=== PATIENT | female | born 1990 | race Caucasian/White ===

== ENCOUNTER 2021-01-30 05:35 | Inpatient (IN) ==
[2021-01-30] MEDS ORDERED: ALBUTEROL HFA 8 GM INHALER INH PRN (06:42)
--- NOTE | 2021-01-30 06:49 | History & Physical Report ---
Date of Service January 30, 2021 Assessment & Plan (1) SPROM (prolonged spontaneous rupture of membranes): Admission and Anticipated Discharge Date Admission Date: IUP at 37 weeks with SPROM and early labor check BSG now epidural when requested may need pitocin augmentation of labor anticipate vaginal . History of Present Illness Primary Care Provider: Charlotte Mario PA-C Patient is a 30 yo white female EDC 02/17/21 who presents at 37 weeks with SPROM at 0415. She has had mild contractions since then. complicated by GDM that was diet controlled. Last ac was 69%tile. GBS -negative. Blood type- A positive Allergies Allergy/AdvReac Type Severity Reaction Status Date / Time No Known Allergies Allergy Verified 01/26/21 14:34 Home Medications Medication Instructions Recorded Confirmed Type albuterol 90 mcg/actuation aerosol mcg INHALATION 07/02/20 01/26/21 History inhaler budesonide-formoterol HFA 160 2 puff INHALATION BID 07/02/20 01/26/21 History mcg-4.5 mcg/actuation aerosol inhaler cetirizine 10 mg tablet 10 mg PO DAILY 07/02/20 01/26/21 History montelukast 10 mg tablet 10 mg PO DAILY 07/02/20 01/26/21 History fluticasone propionate 50 1 spray INTRANASAL DAILY 07/10/20 01/26/21 History mcg/actuation nasal spray,suspension prenat.vits,terra,[id number] PO 08/07/20 01/26/21 History acetone (urine) test #50 ea 12/18/20 01/26/21 Rx blood sugar diagnostic #150 ea 12/18/20 01/26/21 Rx blood-glucose meter #1 ea 12/18/20 01/26/21 Rx lancets 33 gauge #150 ea 12/18/20 01/26/21 Rx Patient History Medical History Asthma Family History Father Diabetes Social History Smoking Status: Never smoker Hx Alcohol Use: No Hx Substance Use: No Preferred Language: Portuguese Saddle Cutter Required: No Beliefs That Will Affect Care: None marital status: marital status details: Quoc (31) [phone] Current Living Situation: Spouse Current Living Situation Comment: lives with spouse, 2 dogs. current occupational status: employed current occupation: salad counter attendant Feels Safe at Home: Yes Safety Concerns: Feels Safe At This Time Review of Systems All systems reviewed & are unremarkable except as noted in HPI & below Physical Exam Constitutional: WD/WN, vitals as above Respiratory: normal respiratory effort, lungs clear to auscultation Cardiovascular: RRR, no murmur, no edema Gastrointestinal (Abdomen): normal bowel sounds, soft, nontender, no hepatosplenomegaly Psychiatric: A+Ox3, euthymic affect Genitourinary: OB Exam Abdomen: + vertex and + estimated weight (6-7 pounds) Manual OB Exam: + cervical dilation 3 cm, + cervical effacement 70%, + station -1 and + amniotic fluid (pink tinged- grossly ruptured) clear OB Exam Monitor Tracing: + external FHT monitor used, + external uterine monitor used, + category I and + normal FHT variability Results & Data ([facility]) Vital Signs (Past 12 Hours) Vital Signs Temp Pulse Resp BP 01/30/21 06:06 97.7 F 83 16 129/85 Code Status & VTE Plan VTE Prophylaxis Plan VTE Prophylaxis will be ordered: No Coding Level of Care Code None Diagnoses SPROM (prolonged spontaneous rupture of membranes) O42.90
[2021-01-30 07:01] LABS: Hematocrit (blood only) 38.4 % (37-47); Hemoglobin 13.2 g/dL (12.0-16.0); Mean Corpuscular Hemoglobin 29.8 pg (25-34); Mean Corpuscular Hgb Conc 34.4 g/dL (32-36); Mean Corpuscular Volume 86.7 fL (80-100); Mean Platelet Volume 10.1 fL (7.4-10.4); Platelet Count 233 K/uL (130-400); RDW Coefficient of Variation 12.9 % (11.5-14.5); RDW Standard Deviation 41.1 fL (36.4-46.3); Red Blood Count 4.43 M/uL (4.2-5.4); White Blood Count 12.75 K/uL (4.8-10.8)
[2021-01-30] MEDS ORDERED: FLUTICASONE/VILANTEROL 100/25MCG 14 PUFFS/INHALER INH SCH (09:00)
[2021-01-30] MEDS ORDERED: FLUTICASONE PROPIONATE NA SPR 16 GM BTL SCH (09:00)
[2021-01-30] MEDS ORDERED: MONTELUKAST SODIUM 10 MG TABLET PO SCH (09:00)
[2021-01-30] MEDS ORDERED: SODIUM CHLORIDE 0.9% INJ 10 ML VIAL ONE (09:39)
[2021-01-30] MEDS ORDERED: ePHEDrine sulfate 50 MG/ML AMP ONE (09:39)
[2021-01-30] MEDS ORDERED: BUPIVACAINE 0.25% 30 ML VIAL ONE (09:39)
[2021-01-30] MEDS ORDERED: fentaNYL citrate 100 MCG/2 ML VIAL ONE (09:40)
[2021-01-30] MEDS ORDERED: fentaNYL 2MCG/ML ROPIVACAINE 1.25MG/ML 100 ML BAG EPI ONE (09:41)
[2021-01-30] MEDS: LACTATED RINGER'S 1,000 ML IV PRN ×2 (09:44→10:16)
[2021-01-30] MEDS ORDERED: ePHEDrine sulfate 50 MG/ML AMP IV PRN (10:06)
[2021-01-30] MEDS ORDERED: NALOXONE HCL 0.4 MG/1 ML VIAL/CARP IV PRN (10:06)
[2021-01-30] MEDS ORDERED: NALOXONE HCL 1 MG in SODIUM CHLORIDE 0.9% 1000ML 1,000 ML IV PRN (10:06)
[2021-01-30] MEDS ORDERED: fentaNYL 2MCG/ML ROPIVACAINE 1.25MG/ML 100 ML BAG EPI PRN (10:06)
[2021-01-30] MEDS ORDERED: diphenhydrAMINE 50 MG/ML VIAL IV PRN (10:06)
--- NOTE | 2021-01-30 10:07 | Anesthesiology Consultation ---
Date of Service January 30, 2021 Assessment & Plan ASA ASA2 Proposed Anesthesia Anesthesia Type: Labor Epidural Risk / Benefits Reviewed With: PT / POA / Parent / Guardian, Accepts Plan and Informed Consent Obtained History Height/Weight Height: 5 ft 4 in Weight: 88.904 kg Allergies Allergy/AdvReac Type Severity Reaction Status Date / Time No Known Allergies Allergy Verified 01/26/21 14:34 Medications Home Medications Medication Instructions Recorded Confirmed Last Taken albuterol 90 mcg/actuation aerosol 90 mcg INHALATION PRN 07/02/20 01/26/21 Unknown inhaler budesonide-formoterol HFA 160 2 puff INHALATION BID 07/02/20 01/30/21 01/28/21 mcg-4.5 mcg/actuation aerosol inhaler cetirizine 10 mg tablet 10 mg PO DAILY 07/02/20 01/30/21 01/29/21 montelukast 10 mg tablet 10 mg PO DAILY 07/02/20 01/30/21 01/29/21 fluticasone propionate 50 1 spray INTRANASAL DAILY 07/10/20 01/30/21 01/29/21 mcg/actuation nasal spray,suspension prenat.vits,terra,[id number] 1 tab PO DAILY 08/07/20 01/30/21 01/29/21 acetone (urine) test #50 ea 12/18/20 01/26/21 Unknown blood sugar diagnostic #150 ea 12/18/20 01/26/21 Unknown blood-glucose meter #1 ea 12/18/20 01/26/21 Unknown lancets 33 gauge #150 ea 12/18/20 01/26/21 Unknown Active Medications Generic Name Dose Route Start Last Admin Trade Name Freq PRN Reason Stop Dose Admin Lactated Ringer's 1,000 mls @ 125 mls/hr 01/30/21 06:29 01/30/21 09:44 Lr IV 02/01/21 06:28 999 mls/hr .Q8H PRN Administration L&D Protocol Protocol Past Medical History Medical History Asthma Exercise / Class Metabolic Activity II 4-5 Yardwork/Stairs/Walk up hill Past Family History Family History Father Diabetes Past Anesthesia History No Hx of Anesthesia Complications and No Family Hx of Anesthesia Complications History of PONV No Hx of PONV and No Hx of Motion Sickness Social History Smoking Status: Never smoker Hx Alcohol Use: No Hx Substance Use: No Review of Systems denies fever/cough/ colds/ chest pain/ SOB/ VILMA denies VILMA Physical Exam Vital Signs Last Vital Signs Temp 36.5 C 01/30/21 06:06 Pulse 71 01/30/21 10:03 Resp 16 01/30/21 06:06 BP 131/87 01/30/21 07:11 Pulse Ox 97 01/30/21 10:03 ENMT Mouth: no TMJ abnormality and no dentition abnormality Thyromental Distance: > or= 3.5 Finger Breadths Mallampati Class: II Neck neck extension not limited Respiratory normal respiratory effort; no respiratory distress Auscultation: lungs clear to auscultation bilaterally Cardiovascular Rate/Rhythm: regular rate and regular rhythm Neurologic moves all extremities Psychiatric Orientation: alert and oriented x 3 Testing Laboratory Results 01/30/21 06:50 01/30/21 06:34 POC Glucose 83
--- NOTE | 2021-01-30 10:54 | Labor Progress Brief Note ---
Date of Service January 30, 2021 Subjective Comfortable with epidural. FHT with occ variable decelerations [place] Q 2 SVE 9/100/0 Anticipate . Assessment & Plan Admission and Anticipated Discharge Date Admission Date: January 30, 2021 Results & Data ([facility]) Vital Signs (Past 12 Hours) Vital Signs Temp Pulse Resp BP Pulse Ox 01/30/21 10:48 69 122/73 99 01/30/21 10:43 57 L 97 01/30/21 10:42 55 L 116/71 01/30/21 10:38 60 96 01/30/21 10:37 57 L 113/71 01/30/21 10:35 60 118/74 01/30/21 10:33 59 L 97 01/30/21 10:32 59 L 129/80 01/30/21 10:31 64 126/79 01/30/21 10:29 70 132/91 01/30/21 10:28 64 97 01/30/21 10:27 66 131/88 01/30/21 10:25 62 127/82 01/30/21 10:23 78 98 01/30/21 10:18 69 97 01/30/21 10:17 75 157/87 H 01/30/21 10:13 65 96 01/30/21 10:08 62 96 01/30/21 10:03 71 97 01/30/21 09:58 65 97 01/30/21 09:53 75 96 01/30/21 09:48 84 99 01/30/21 09:00 20 01/30/21 07:11 68 131/87 01/30/21 07:00 36.8 C 20 01/30/21 06:06 36.5 C 83 16 129/85 Coding Level of Care Code None
--- NOTE | 2021-01-30 12:47 | Labor Progress Brief Note ---
Date of Service January 30, 2021 Subjective Comfortable. FHT mod ferny, baseline 130s. Rare variable ctx. [place] Q 2 SVE complete/0 Anticipate . Not yet feeling urge to push. Assessment & Plan Admission and Anticipated Discharge Date Admission Date: January 30, 2021 Results & Data ([facility]) Vital Signs (Past 12 Hours) Vital Signs Temp Pulse Resp BP Pulse Ox 01/30/21 12:43 70 99 01/30/21 12:38 67 100 01/30/21 12:33 72 98 01/30/21 12:31 73 126/88 01/30/21 12:28 67 99 01/30/21 12:23 69 99 01/30/21 12:18 77 99 01/30/21 12:13 65 99 01/30/21 12:12 60 123/79 01/30/21 12:08 59 L 124/81 99 01/30/21 12:03 63 124/82 99 01/30/21 12:01 20 01/30/21 11:58 61 99 01/30/21 11:57 62 123/79 01/30/21 11:53 61 99 01/30/21 11:52 57 L 122/76 01/30/21 11:48 60 125/78 98 01/30/21 11:46 20 01/30/21 11:43 69 98 01/30/21 11:42 62 124/76 01/30/21 11:39 62 122/77 01/30/21 11:38 62 100 01/30/21 11:33 65 99 01/30/21 11:32 61 120/77 01/30/21 11:31 20 01/30/21 11:28 62 100 01/30/21 11:27 68 117/78 01/30/21 11:23 56 L 120/74 99 01/30/21 11:18 61 99 01/30/21 11:17 59 L 114/74 01/30/21 11:16 20 01/30/21 11:13 59 L 99 01/30/21 11:12 56 L 119/82 01/30/21 11:08 55 L 122/75 100 01/30/21 11:03 59 L 117/75 98 01/30/21 11:01 20 01/30/21 10:58 68 99 01/30/21 10:57 62 113/72 01/30/21 10:53 68 98 01/30/21 10:52 81 109/68 01/30/21 10:48 69 122/73 99 01/30/21 10:43 57 L 97 01/30/21 10:42 55 L 116/71 01/30/21 10:41 20 01/30/21 10:38 60 96 01/30/21 10:37 57 L 113/71 01/30/21 10:35 60 118/74 01/30/21 10:33 59 L 97 01/30/21 10:32 59 L 129/80 01/30/21 10:31 64 126/79 01/30/21 10:29 70 132/91 01/30/21 10:28 64 97 01/30/21 10:27 66 131/88 01/30/21 10:25 62 127/82 01/30/21 10:23 78 98 01/30/21 10:18 69 97 01/30/21 10:17 75 157/87 H 01/30/21 10:13 65 96 01/30/21 10:08 62 96 01/30/21 10:03 71 97 01/30/21 09:58 65 97 01/30/21 09:53 75 96 01/30/21 09:48 84 99 01/30/21 09:00 20 01/30/21 07:11 68 131/87 01/30/21 07:00 36.8 C 20 01/30/21 06:06 36.5 C 83 16 129/85 Coding Level of Care Code None
[2021-01-30] MEDS: OXYTOCIN 30 UNITS/500 ML BAG IV PRN ×2 (14:48→15:31)
--- NOTE | 2021-01-30 15:32 | Delivery Summary ---
Vaginal Delivery Summary Date of Service January 30, 2021 Vaginal Delivery Summary [facility] Vaginal Delivery Summary: Pre-delivery diagnoses: 30yo @ 37 3/7, spontaneous labor, asthma, GDMA1 Post-delivery diagnoses: same Procedure: spontaneous vaginal delivery, 2nd degree perineal laceration repair and periclitoral repair Surgeon: Linda Harris DO Complications: none Findings: Viable male . Apgars: 8/9 . Weight pending, please see nursery records Estimated blood loss: 300ml Description of delivery: The patient progressed to complete with epidural anesthesia. She then began to push. She spontaneously vaginally delivered a viable from the cephalic presentation. The head delivered in MARILYNN position. Nuchal cord x 1, too tight to reduce, delivered through. The anterior shoulder delivered, followed by the posterior shoulder, followed by the body. The baby was placed on mother's abdomen and a spontaneous cry was heard. Delayed cord clamping was employed, and the cord was doubly clamped and cut. Cord blood was obtained. The placenta was delivered spontaneously intact with a 3-vessel cord. The uterus and vagina were swept of clots and debris. IV pitocin was given. The uterus became firm. The cervix, vagina, and perineum were inspected and a 2nd degree perineal laceration and left periclitoral laceration was noted. These were repaired with 3-0 vicryl. Excellent hemostasis was observed. The mother and baby are recovering in stable and good condition in the room. Sponge, needle and instrument counts were correct x 2. Linda Harris DO [facility] Vaginal Delivery Charge Vaginal Delivery Codes: 85526 global code for the antepartum, delivery, and post- Delivery Type Details: [facility]
[2021-01-30] MEDS ORDERED: BENZOCAINE 20% AER SPR 82.5 GM CAN EXT PRN (16:26)
[2021-01-30] MEDS ORDERED: SUPERCREAM 0.870% 15 GM JAR EXT PRN (16:26)
[2021-01-30] MEDS ORDERED: OXYTOCIN 30 UNITS/500 ML BAG IV PRN (16:26)
[2021-01-30] MEDS ORDERED: ACETAMINOPHEN 325 MG TAB PO PRN (16:26)
[2021-01-30] MEDS ORDERED: HYDROCORTISONE ACETATE 25 MG SUPP PR PRN (16:26)
[2021-01-30] MEDS ORDERED: oxyCODONE/ACETAMINOPHEN 5mg/325mg TAB PO PRN (16:26)
[2021-01-30] MEDS ORDERED: DIPHTHERIA/TETANUS/PERTUSSIS 0.5 ML SYR/VIAL IM ONE (16:26)
[2021-01-30] MEDS ORDERED: bisacodyL 10 MG SUPP PR PRN (16:26)
[2021-01-30] MEDS ORDERED: Nursing to Pharmacy Communication SCH (16:45)
--- NOTE | 2021-01-30 19:06 | Anesthesia Procedure Note ---
Date of Service January 30, 2021 Anesthesia Post Epidural Note Vital Signs Vital Signs: Temp Pulse Resp BP Pulse Ox 36.0 C L 79 20 129/86 96 01/30/21 11:15 01/30/21 19:01 01/30/21 17:35 01/30/21 19:01 01/30/21 14:43 Notes Mental Status: alert / awake / arousable and participated in evaluation Patient Amnestic to Procedure: No Nausea / Vomiting: adequately controlled Pain: adequately controlled Airway Patency, RR, SpO2: stable & adequate BP & HR: stable & adequate Hydration State: stable & adequate Neuraxial Anesthesia: was administered and sensory block is resolving Anesthetic Complications: no major complications apparent and Pt Satisfied with anesthetic care Epidural: Removed without complications and With tip intact
[2021-01-30] MEDS: IBUPROFEN 600 MG TAB PO PRN (19:23)
[2021-01-30] MEDS: DOCUSATE SODIUM 100 MG CAP PO SCH (20:26)
[2021-01-30] MEDS: PRENATAL VITAMIN 1 TAB PO SCH (20:27)
[2021-01-30] MEDS: FLUTICASONE PROPIONATE NA SPR 16 GM BTL SCH (20:27)
[2021-01-30] MEDS: MONTELUKAST SODIUM 10 MG TABLET PO SCH (20:28)
[2021-01-30] MEDS: FLUTICASONE/VILANTEROL 100/25MCG 14 PUFFS/INHALER INH SCH (20:33)
[2021-01-30] MEDS: CETIRIZINE HCL 10 MG TABLET PO SCH (21:34)
[2021-01-31 06:49] LABS: Hematocrit (blood only) 35.4 % (37-47); Hemoglobin 12.1 g/dL (12.0-16.0)
[2021-01-31] MEDS: DOCUSATE SODIUM 100 MG CAP PO SCH ×2 (07:45→20:28)
[2021-01-31] MEDS ORDERED: PRENATAL VITAMIN 1 TAB PO SCH (08:00)
[2021-01-31] MEDS ORDERED: CETIRIZINE HCL 10 MG TABLET PO SCH (09:00)
[2021-01-31] MEDS ORDERED: NON-FORMULARY MEDICATION (Prenat.Vits,Cal,Min-Iron-Folic 1 TAB) PO SCH (09:00)
--- NOTE | 2021-01-31 09:17 | Obstetrical Progress Note ---
Date of Service January 31, 2021 Assessment & Plan (1) Supervision of normal intrauterine in primigravida: PPD#1 doing well. Anticipate DC home tomorrow. Subjective Ambulation: ambulating normally Voiding: no voiding problems Diet Tolerance:: regular diet Lochia:: Moderate Feeding Type:: breast feeding PPD#1 doing well. Review of Systems All systems reviewed & are unremarkable except as noted in HPI & below Physical Exam Constitutional WD/WN, vitals as above no acute distress Respiratory normal respiratory effort Cardiovascular Rate/Rhythm: regular rate and regular rhythm Gastrointestinal (Abdomen) Inspection/Auscultation: abdomen normal to inspection; abdomen not distended Percussion/Palpation: abdomen soft Genitourinary OB Exam Abdomen: + fundal height Fundus: + firm; not tender Results & Data ([facility]) Vital Signs (Past 12 Hours) Vital Signs Temp Pulse Resp BP Pulse Ox 01/31/21 07:35 36.7 C 75 18 127/85 98 01/31/21 07:32 36.6 C 73 20 120/82 01/31/21 05:26 36.8 C 72 16 124/80 01/30/21 23:05 36.5 C 60 16 129/82
[2021-01-31] MEDS: IBUPROFEN 600 MG TAB PO PRN (15:15)
[2021-01-31] MEDS ORDERED: bisacodyL 5 MG TABEC PO SCH (20:00)
[2021-01-31] MEDS: MONTELUKAST SODIUM 10 MG TABLET PO SCH (20:29)
[2021-01-31] MEDS: PRENATAL VITAMIN 1 TAB PO SCH (20:29)
[2021-01-31] MEDS: CETIRIZINE HCL 10 MG TABLET PO SCH (20:29)
[2021-01-31] MEDS: FLUTICASONE/VILANTEROL 100/25MCG 14 PUFFS/INHALER INH SCH (20:31)
[2021-01-31] MEDS: FLUTICASONE PROPIONATE NA SPR 16 GM BTL SCH (21:26)
--- NOTE | 2021-02-01 05:09 | Obstetrical Progress Note ---
Date of Service <Oc Sylvester MD - Last Filed: 02/01/21 06:29> February 01, 2021 Assessment & Plan <Oc Sylvester MD - Last Filed: 02/01/21 06:29> (1) SPROM (prolonged spontaneous rupture of membranes): Mena is a 30 y/o female whose was complicated by GDMA1 who is now PPD #2 following at 37-3 weeks. - Feels well today. Eating well, voiding well, ambulating well. - Pain well controlled with ibuprofen 600mg Q4H PRN. - Routine PPD care -- continue OOB, ambulation - Anticipate d/c today - After discharge will have [address] Harris Subjective <Oc Sylvester MD - Last Filed: 02/01/21 06:29> Mena is a 89 y/o female who is now PPD #2 following at 37-3 weeks. Reports feeling well overall this morning. Mild abdominal cramping & pain well managed on analgesics. Voiding without difficulty. Tolerating meals well and able to ambulate some. Some persistent lochia with some improvement this morning. Breast feeding fine -- no concerns about latching. Review of Systems Denies fever, chills, sweats Denies shortness of breath, difficulty breathing, chest pain, palpitations, chest pressure. Denies breast pain. Denies dysuria. Denies headache or changes in vision. Physical Exam <Oc Sylvester MD - Last Filed: 02/01/21 06:29> General: Alert, oriented. No acute distress. Cardiac: Regular rate and rhythm, no murmurs/rubs/gallops. Respiratory: Clear to auscultation bilaterally a/p, no wheezes/rales/rhonchi. No increased work of breathing. Symmetrical chest rise. No respiratory distress. Abdomen: Soft, nontender, nondistended. Bowel sounds present. Uterus: Uterine fundus firm, palpable 2-3 cm below umbilicus. Lower Extremities: No lower extremity edema or swelling. No deep calf pain. Chris's negative bilaterally. Results & Data ([facility]) <Oc Sylvester MD - Last Filed: 02/01/21 06:29> Vital Signs (Past 12 Hours) Vital Signs Temp Pulse Resp BP Pulse Ox 02/01/21 00:15 36.6 C 80 16 132/89 98 <Linda Harris DO - Last Filed: 02/01/21 08:26> Co-Signing Physician Notes Resident Physician Supervision Note: I was present with Dr. Sylvester during the history and exam. I discussed the case with the resident and agree with the findings and plan as documented in the note. Any exceptions or clarifications are listed here: PPD#2 doing well. No concerns. Followup 6w . Documented By: Linda Harris DO Resident Activity Tracking <Oc Sylvester MD - Last Filed: 02/01/21 06:29> Resident Involvement: Resident Care Provided Care Provided: Adult Hospital Medicine and OB Delivery
[2021-02-01] MEDS: DOCUSATE SODIUM 100 MG CAP PO SCH (08:05)
[2021-02-01] MEDS: IBUPROFEN 600 MG TAB PO PRN ×2 (08:05→12:20)
== END 2021-02-01 13:05 | disposition home or self-care (01) | DRG 807 ==
LOC: OPB 05:35 → 4S1 05:40 → 4S2 20:11

== ENCOUNTER 2024-08-07 13:59 | Inpatient (IN) ==
[2024-08-07] MEDS: LACTATED RINGER'S 1,000 ML IV PRN (14:46)
[2024-08-07] MEDS ORDERED: LIDOCAINE 1% LOCAL 20 ML VIAL INFIL PRN (14:59)
--- NOTE | 2024-08-07 15:04 | History & Physical Report ---
Date of Service August 07, 2024 Assessment & Plan (1) Normal labor: (2) GBS carrier: (3) Rubella non-immune status, antepartum: (4) Gestational diabetes: Plan admit, iv, labs. fhts categ 1. epidural desired. pcn for gbs. will arom when appropriate. History of Present Illness Chief Complaint: labor Primary Care Provider: Cosme Zamudio MD 34yo at 38wks ega presents to L&D with cc of regular ctx. Patient notes increasing pain with ctx. Exam by nursing on arrival 7cm. No rom. +bloody show. PNC c/b 1. GDM, aga on last u/s 2. MMR pp 3. GBS pos PNL rh pos, ri, gbs pos OBH: x 1 GYNH: nl paps no stds Allergies Allergy/AdvReac Type Severity Reaction Status Date / Time No Known Allergies Allergy Verified 08/06/24 09:15 Home Medications Medication Instructions Recorded Confirmed Type cetirizine 10 mg tablet (Zyrtec) 10 mg PO DAILY 07/02/20 08/07/24 History montelukast 10 mg tablet 10 mg PO DAILY 07/02/20 08/07/24 History (Singulair) fluticasone propionate 50 1 spray intranasal DAILY 07/10/20 08/07/24 History mcg/actuation nasal spray,suspension (Allergy Relief (fluticasone)) acetone (urine) test (Ketone Urine #50 ea 04/12/24 08/06/24 Rx Test strips) blood sugar diagnostic (OneTouch #150 ea 04/12/24 08/06/24 Rx Verio test strips) lancets 33 gauge (OneTouch Delica #150 ea 04/12/24 08/06/24 Rx Plus Lancet) albuterol sulfate 90 mcg/actuation 2 puff inhalation Q6H PRN Wheezing 08/07/24 08/07/24 History aerosol inhaler vits no.124-ferrous fum 1 tab PO DAILY 08/07/24 08/07/24 History 27 mg iron-folic acid 800 mcg tablet ( Vitamin) Patient History Medical History (Updated 08/07/24 @ 15:13 by Ashish Borrero MD) Gestational diabetes History of chicken pox Asthma Surgical History S/P wisdom tooth extraction Family History Father Diabetes Grandfather (Maternal) Myocardial infarction Denies family history of Ovarian cancer Prostate cancer Breast cancer Colorectal cancer Social History (Updated 08/07/24 @ 14:06 by Teresa Tee RN) Smoking Status: Never smoker Do You Dip or Chew Tobacco: No; Hx Alcohol Use: No Hx Substance Use: No Preferred Language: Samoan Communication Ability: Effective Hearing Ability: Normal Sole Rougher Required: No Beliefs That Will Affect Care: None marital status: marital status details: Quoc Justin (35) [phone] Current Living Situation: Spouse and Family Current Living Situation Comment: lives with spouse, child, dog current occupational status: employed current occupation: manager of case Other Information That Helps Us Care for You: No Feels Safe at Home: Yes Safety Concerns: Feels Safe At This Time Childhood Exposure to Second-Hand Smoke: No Diet: regular Gender Identity: Female Assistive Devices: None Assistive Devices Comment: Pt. forgot glasses Review of Systems as per Subjective / HPI Physical Exam Constitutional: WD/WN, vitals as above Respiratory: normal respiratory effort, lungs clear to auscultation Cardiovascular: Rate/Rhythm: regular rate and regular rhythm Gastrointestinal (Abdomen): soft gravid nt efw 7-8# Musculoskeletal: no edema nontender calves Neurologic: grossly normal Psychiatric: A+Ox3, euthymic affect Genitourinary: Manual OB Exam: + cervical dilation 7 cm OB Exam Monitor Tracing: + external FHT monitor used, + external uterine monitor used (q2-3), + category I and + normal FHT variability Results & Data Vital Signs (Past 12 Hours) Vital Signs Temp Pulse Resp BP 08/07/24 14:16 97.9 F 96 H 20 130/89 Coding Level of Care Code None Diagnoses Normal labor O80; Z37.9 GBS carrier Z22.330 Rubella non-immune status, antepartum O09.899; Z28.39 Gestational diabetes O24.419
--- NOTE | 2024-08-07 15:12 | Anesthesiology Consultation ---
Date of Service August 07, 2024 Assessment & Plan (1) Encounter for pre-operative examination: Chart Review Chart Review: Acceptable Risk for Labor Epidural History Height/Weight Height: 5 ft 4 in Weight: 88.813 kg Allergies Allergy/AdvReac Type Severity Reaction Status Date / Time No Known Allergies Allergy Verified 08/06/24 09:15 Medications Home Medications Medication Instructions Recorded Confirmed Last Taken cetirizine 10 mg tablet (Zyrtec) 10 mg PO DAILY 07/02/20 08/07/24 08/02/24 21:00 montelukast 10 mg tablet 10 mg PO DAILY 07/02/20 08/07/24 08/06/24 21:00 (Singulair) fluticasone propionate 50 1 spray intranasal DAILY 07/10/20 08/07/24 08/06/24 21:00 mcg/actuation nasal spray,suspension (Allergy Relief (fluticasone)) acetone (urine) test (Ketone Urine #50 ea 04/12/24 08/06/24 Unknown Test strips) blood sugar diagnostic (OneTouch #150 ea 04/12/24 08/06/24 Unknown Verio test strips) lancets 33 gauge (OneTouch Delica #150 ea 04/12/24 08/06/24 Unknown Plus Lancet) albuterol sulfate 90 mcg/actuation 2 puff inhalation Q6H PRN Wheezing 08/07/24 08/07/24 08/01/24 21:00 aerosol inhaler vits no.124-ferrous fum 1 tab PO DAILY 08/07/24 08/07/24 08/06/24 21:00 27 mg iron-folic acid 800 mcg tablet ( Vitamin) Past Medical History Medical History (Updated 08/07/24 @ 15:13 by Ashish Borrero MD) Gestational diabetes History of chicken pox Asthma Past Family History Family History Father Diabetes Grandfather (Maternal) Myocardial infarction Denies family history of Ovarian cancer Prostate cancer Breast cancer Colorectal cancer Past Surgical History Surgical History S/P wisdom tooth extraction Social History Smoking Status: Never smoker Do You Dip or Chew Tobacco: No Hx Alcohol Use: No Hx Substance Use: No substance use type: does not use Physical Exam Vital Signs Last Vital Signs Temp 36.6 C 08/07/24 14:16 Pulse 96 H 08/07/24 14:16 Resp 20 08/07/24 14:16 BP 130/89 08/07/24 14:16 Testing Laboratory Results 08/07/24 14:59 POC Glucose 114 H Hb 11.9 on 05/28 Labs for today pending
[2024-08-07 15:27] LABS: Hematocrit (blood only) 34.9 % (37.0-47.0); Hemoglobin 12.1 g/dl (12.0-16.0); Mean Corpuscular Hemoglobin 28.9 pg (25.0-34.0); Mean Corpuscular Hgb Conc 34.7 g/dL (32.0-36.0); Mean Corpuscular Volume 83.3 fL (80.0-100.0); Mean Platelet Volume 10.9 fL (9.4-12.4); Platelet Count 247 K/uL (130-400); RDW Coefficient of Variation 13.3 % (11.5-14.5); RDW Standard Deviation 40.4 fL (36.4-46.3); Red Blood Count 4.19 M/uL (4.20-5.40); White Blood Count 10.99 K/ul (4.8-10.8)
[2024-08-07] MEDS: PENICILLIN GK 6 MU in DEXTROSE 5% 250 ML IV STA (15:36)
[2024-08-07] MEDS: BUPIVACAINE 0.25% PF 30 ML VIAL ONE (15:50)
[2024-08-07] MEDS: fentaNYL citrate PF 100 MCG/2 ML VIAL ONE (15:50)
[2024-08-07] MEDS: LIDOCAINE 2%/EPINEPHRINE 1:200,000 20 ML PF ONE (15:50)
[2024-08-07] MEDS: fentANYL 2 MCG/ML BUPIVacaine 0.125%-NSS 100ML BAG ONE (15:55)
[2024-08-07] MEDS ORDERED: LIDOCAINE 2% MPF LOCAL 5 ML VIAL EPI PRN (16:00)
[2024-08-07] MEDS ORDERED: ONDANSETRON INJ 2 MG/ML 2 ML VIAL IV PRN (16:00)
[2024-08-07] MEDS ORDERED: fentANYL 2 MCG/ML BUPIVacaine 0.125%-NSS 100ML BAG EPI PRN (16:00)
[2024-08-07] MEDS ORDERED: SODIUM CHLORIDE 0.9% PF INJ 10 ML VIAL EPI PRN (16:00)
[2024-08-07] MEDS ORDERED: NALOXONE HCL 1 MG in SODIUM CHLORIDE 0.9% 1,000 ML IV PRN (16:00)
[2024-08-07] MEDS ORDERED: fentaNYL citrate PF 100 MCG/2 ML VIAL EPI PRN (16:00)
[2024-08-07] MEDS ORDERED: NALOXONE HCL 0.4 MG/1 ML VIAL/CARP IV PRN (16:00)
[2024-08-07] MEDS ORDERED: ROPIVACAINE 0.5% PF 5 MG/ML 20 ML VIAL EPI PRN (16:00)
[2024-08-07] MEDS ORDERED: BUPIVACAINE 0.25% PF 30 ML VIAL EPI PRN (16:00)
[2024-08-07] MEDS ORDERED: ePHEDrine sulfate 50 MG/ML AMP IV PRN (16:00)
[2024-08-07] MEDS: SODIUM CHLORIDE 0.9% PF INJ 10 ML VIAL ONE (16:11)
[2024-08-07] MEDS: PENICILLIN GK 3 MU in DEXTROSE 5% 100 ML IV PRN (18:54)
--- NOTE | 2024-08-07 19:37 | Labor Progress Brief Note ---
Date of Service August 07, 2024 Subjective comfortable Assessment & Plan (1) Normal labor: (2) GBS carrier: Plan begin 2nd stage. fhts categ 1. Admission and Anticipated Discharge Date Admission Date: August 07, 2024 Physical Exam Constitutional: WD/WN, vitals as above Genitourinary: Manual OB Exam: + cervical dilation 10 cm, + cervical effacement 100% and + station + 1 OB Exam Monitor Tracing: + external FHT monitor used, + external uterine monitor used (q2), + category I and + normal FHT variability Results & Data Vital Signs (Past 12 Hours) Vital Signs Temp Pulse Resp BP Pulse Ox 08/07/24 19:35 78 120/84 100 08/07/24 19:30 77 100 08/07/24 19:25 85 97 08/07/24 19:23 88 94 08/07/24 19:20 97 08/07/24 19:20 79 08/07/24 19:20 75 124/87 08/07/24 19:18 77 94 08/07/24 19:15 75 97 08/07/24 19:10 87 99 08/07/24 19:05 86 123/88 100 08/07/24 19:01 83 93 08/07/24 19:00 83 97 08/07/24 18:55 77 100 08/07/24 18:52 71 122/85 08/07/24 18:50 76 100 08/07/24 18:48 79 91 08/07/24 18:45 72 99 08/07/24 18:40 89 98 08/07/24 18:35 79 111/75 99 08/07/24 18:30 80 100 08/07/24 18:25 66 100 08/07/24 18:22 74 108/76 08/07/24 18:20 70 100 08/07/24 18:15 72 100 08/07/24 18:10 65 100 08/07/24 18:06 75 106/74 08/07/24 18:05 75 100 08/07/24 18:00 82 99 08/07/24 17:55 80 99 08/07/24 17:50 99 08/07/24 17:50 82 08/07/24 17:50 75 16 107/79 08/07/24 17:45 63 100 08/07/24 17:40 65 100 08/07/24 17:36 73 108/78 08/07/24 17:35 68 100 08/07/24 17:30 66 100 08/07/24 17:25 72 100 08/07/24 17:20 100 08/07/24 17:20 71 08/07/24 17:20 71 20 104/77 08/07/24 17:15 86 99 08/07/24 17:10 75 100 08/07/24 17:05 77 120/75 100 08/07/24 17:00 85 100 08/07/24 16:55 63 100 08/07/24 16:51 77 108/73 08/07/24 16:50 66 99 08/07/24 16:45 92 H 100 08/07/24 16:40 69 99 08/07/24 16:35 99 08/07/24 16:35 89 08/07/24 16:35 82 20 99/72 L 08/07/24 16:30 91 H 100 08/07/24 16:25 72 99 08/07/24 16:21 70 107/69 08/07/24 16:20 74 99 08/07/24 16:19 97.5 F L 20 08/07/24 16:15 86 100 08/07/24 16:10 67 100 08/07/24 16:05 95 H 99 08/07/24 16:04 79 105/68 08/07/24 16:02 90 95/57 L 08/07/24 16:00 70 102/73 100 08/07/24 15:58 68 118/76 08/07/24 15:56 83 122/80 08/07/24 15:55 80 99 08/07/24 15:54 65 123/76 08/07/24 15:53 65 118/77 08/07/24 15:51 78 114/74 08/07/24 15:50 74 124/78 99 08/07/24 15:45 69 98 08/07/24 15:40 70 98 08/07/24 15:35 68 97 08/07/24 14:16 97.9 F 96 H 20 130/89 Coding Level of Care Code None Diagnoses Normal labor O80; Z37.9 GBS carrier Z22.330
[2024-08-07] MEDS: CALCIUM CARBONATE 500 MG CHEWABLE TAB PO PRN (19:46)
[2024-08-07] MEDS: SODIUM CHLORIDE 0.9% PF INJ 10 ML VIAL EPI STA (19:46)
[2024-08-07] MEDS: BUPIVACAINE 0.25% PF 30 ML VIAL EPI STA (19:47)
[2024-08-07] MEDS: LIDOCAINE 2%/EPINEPHRINE 1:200,000 20 ML PF EPI STA (19:47)
[2024-08-07] MEDS: fentaNYL citrate PF 100 MCG/2 ML VIAL EPI STA (19:47)
[2024-08-07] MEDS: ePHEDrine sulfate 50 MG/ML AMP ONE (19:47)
[2024-08-07] MEDS: OXYTOCIN 30 UNITS/NSS 30 UNITS/500 ML BAG IV PRN (20:25)
--- NOTE | 2024-08-07 20:35 | Delivery Summary ---
Vaginal Delivery Summary Date of Service August 07, 2024 Vaginal Delivery Summary The patient dilated to complete and pushed to deliver a viable male Apgars 7 and 8 via over intact perineum. Mouth and nose bulb suctioned at perineum. Shoulders and body delivered with ease. Infant was crying at . Cord clamped at 30 seconds of life and infant to maternal abdomen where the cord was then doubly clamped and cut. Placenta delivered spontaneously and intact, three-vessel cord. Hemostasis achieved with dilute pitocin and uterine massage, rectal cytotec 1000mcg and drainage of the bladder for approximately 150 cc under sterile conditions. Cervix and sulci intact. QBL 330 cc. Laceration of right periurethral labial area, reapproximated with 4-0 vicryl for excellent hemostasis. Mother and baby stable in recovery. [facility] Vaginal Delivery Charge Delivery Type Details:
[2024-08-07] MEDS ORDERED: MEASLES, MUMPS & RUBELLA VIRUS VACCINE (MMR) 0.5ML VIAL SQ ONE (20:43)
[2024-08-07] MEDS ORDERED: ALBUTEROL HFA 8 GM INHALER INH PRN (20:43)
[2024-08-07] MEDS ORDERED: OXYTOCIN 30 UNITS/NSS 30 UNITS/500 ML BAG IV PRN (20:43)
[2024-08-07] MEDS ORDERED: oxyCODONE/ACETAMINOPHEN 5mg/325mg TAB PO PRN (20:43)
[2024-08-07] MEDS ORDERED: HYDROCORTISONE ACETATE 25 MG SUPP PR PRN (20:43)
[2024-08-07] MEDS: miSOPROStoL 200 MCG TAB PR ONE (20:45)
--- NOTE | 2024-08-07 21:14 | Anesthesia Procedure Note ---
Date of Service August 07, 2024 Anesthesia Post Epidural Note Vital Signs Vital Signs: Temp Pulse Resp BP Pulse Ox 37.0 C 74 18 124/78 99 08/07/24 20:35 08/07/24 20:50 08/07/24 20:35 08/07/24 20:50 08/07/24 20:20 Pain Intensity Abdomen: Pain Intensity: 0 Notes Mental Status: alert / awake / arousable and participated in evaluation Nausea / Vomiting: adequately controlled Pain: adequately controlled Airway Patency, RR, SpO2: stable & adequate BP & HR: stable & adequate Hydration State: stable & adequate Neuraxial Anesthesia: was administered and sensory block is resolving Anesthetic Complications: no major complications apparent Epidural: Removed without complications and With tip intact
[2024-08-07] MEDS: IBUPROFEN 600 MG TAB PO PRN (21:19)
[2024-08-07] MEDS: BENZOCAINE 20% SPRY 85 APPLN/85 GM CAN EXT PRN (21:19)
[2024-08-07] MEDS: DOCUSATE SODIUM 100 MG CAP PO SCH (21:22)
[2024-08-07] MEDS: DIPHTHER/TETAN/PERTUS Vaccine (Tdap, Adol/Adult) 0.5mL IM ONE (22:05)
[2024-08-07] MEDS: ACETAMINOPHEN 325 MG TAB PO PRN (22:28)
[2024-08-08 03:15] VITALS: O2SAT 97
--- NOTE | 2024-08-08 07:03 | Obstetrical Progress Note ---
Date of Service August 08, 2024 Assessment & Plan (1) Encounter for assessment: Plan: Patient is PPD 1 s/p and doing well - Eating well, voiding well, ambulating well - vitals reviewed and within normal limits - pain well controlled with analgesics - OOB, ambulation, diet progression as tolerated - Blood type: A+, GBS pos, rubella equivocal - Plan to discharge tomorrow - After discharge, 6 week follow up with OB Admission and Anticipated Discharge Date Admission Date: August 07, 2024 Supervising Physician Co-Signing Physician Notes Resident Physician Supervision Note: I was present with Dr. Danielle during the history and exam. I discussed the case with the resident and agree with the findings and plan as documented in the note. Any exceptions or clarifications are listed here: stable, routine care. abd soft ff 1 down nt, nt calves. ppd#1 s/p , routine care. needs mmr, ordered. . Documented By: Shantelle Mora MD, FACOG Subjective 34 yo post- day 1 s/p Ambulation: ambulating normally Voiding: no voiding problems Passing Gas:: No Diet Tolerance:: regular diet Lochia:: Small Feeding Type:: breast feeding Current Pain Level: 4-5/10 Resting comfortably this AM in NAD. Denies GALARZA, CP, SOB, N/V/D, LE pain/swelling. Physical Exam Physical Exam: General: patient resting comfortably, NAD, non-toxic in appearance, answers questions appropriately. Skin: warm, dry, intact HEENT: NC/AT, anicteric sclera, conjunctiva without injection, moist mucus membranes. Heart: +S1/S2, regular, no m/r/g Lungs: equal air entry bilaterally, no rales/rhonchi/wheezes Abd: +BS, soft, NT/ND, uterine fundus firm at umbilicus Ext: warm, no clubbing/cyanosis or edema, Chris's neg. Neuro: nonfocal, speech intact, no facial droop, moving all extremities. Results & Data Vital Signs (Past 12 Hours) Vital Signs Temp Pulse Pulse Resp BP BP Pulse Ox 08/08/24 03:13 37.3 C 78 18 136/83 97 08/07/24 23:50 37.7 C H 89 18 137/88 99 08/07/24 23:01 37.9 C H 18 08/07/24 23:01 77 132/77 08/07/24 22:16 37.6 C H 18 08/07/24 22:16 77 139/85 08/07/24 22:01 76 137/85 08/07/24 21:46 84 141/96 H 08/07/24 21:31 70 139/82 08/07/24 21:15 18 08/07/24 21:15 79 136/68 08/07/24 20:50 74 124/78 08/07/24 20:35 37.0 C 18 08/07/24 20:35 75 125/77 08/07/24 20:20 83 99 08/07/24 20:15 88 99 08/07/24 20:10 84 100 08/07/24 20:05 80 122/84 100 08/07/24 20:00 73 100 08/07/24 19:55 78 100 08/07/24 19:51 74 121/80 08/07/24 19:50 77 100 08/07/24 19:46 79 93 08/07/24 19:45 83 100 08/07/24 19:40 84 99 08/07/24 19:35 78 120/84 100 08/07/24 19:30 36.8 C 77 18 100 08/07/24 19:25 85 97 08/07/24 19:23 88 94 08/07/24 19:20 97 08/07/24 19:20 79 08/07/24 19:20 75 124/87 08/07/24 19:18 77 94 08/07/24 19:15 75 97 08/07/24 19:10 87 99 08/07/24 19:05 86 123/88 100 08/07/24 19:01 83 93 O2 Del Method 08/08/24 03:13 Room Air 08/07/24 23:50 Room Air 08/07/24 23:01 08/07/24 23:01 08/07/24 22:16 08/07/24 22:16 08/07/24 22:01 08/07/24 21:46 08/07/24 21:31 08/07/24 21:15 08/07/24 21:15 08/07/24 20:50 08/07/24 20:35 08/07/24 20:35 08/07/24 20:20 08/07/24 20:15 08/07/24 20:10 08/07/24 20:05 08/07/24 20:00 08/07/24 19:55 08/07/24 19:51 08/07/24 19:50 08/07/24 19:46 08/07/24 19:45 08/07/24 19:40 08/07/24 19:35 08/07/24 19:30 08/07/24 19:25 08/07/24 19:23 08/07/24 19:20 08/07/24 19:20 08/07/24 19:20 08/07/24 19:18 08/07/24 19:15 08/07/24 19:10 08/07/24 19:05 08/07/24 19:01 Resident Activity Tracking Resident Involvement: Resident Care Provided Care Provided: OB Delivery (1) Encounter for assessment visit type: exam and care immediately after delivery Qualified Code(s): Z39.0 - Encounter for care and examination of mother immediately after delivery
[2024-08-08 07:07] LABS: Hematocrit (blood only) 33.2 % (37.0-47.0); Hemoglobin 11.5 g/dl (12.0-16.0)
[2024-08-08] MEDS: CETIRIZINE HCL 10 MG TABLET PO SCH (08:59)
[2024-08-08] MEDS: PRENATAL VITAMIN 1 TAB PO SCH (08:59)
[2024-08-08] MEDS: MONTELUKAST SODIUM 10 MG TABLET PO SCH (08:59)
[2024-08-08] MEDS: FLUTICASONE PROPIONATE NA SPR 16 GM BTL SCH (09:00)
[2024-08-08 09:22] VITALS: RESP 16
[2024-08-08 12:59] VITALS: PULSE 71
[2024-08-08 16:08] VITALS: BP 112/70; TEMP 98.2
[2024-08-08] MEDS ORDERED: bisacodyL 5 MG TABEC PO SCH (20:00)
== END 2024-08-08 21:45 | disposition home or self-care (01) | DRG 807 ==
LOC: OPB 13:59 → 4S1 14:02 → 4E2 23:40